=== PATIENT | male | born 1940 | race Caucasian/White ===

== ENCOUNTER → 2020-08-14 | Outpatient (CLI) | payer MEDICARE ==
--- NOTE | 2020-08-14 18:12 | RAD ---
CLINICAL HISTORY: Right testicular mass COMPARISON: None available. TECHNIQUE: Ultrasound images of the scrotum was performed with root-scale and color doppler. FINDINGS: The right testis measures 4.3 x 2.8 x 2.0 cm. The left testis measures 4.2 x 2.2 x 2.2 cm. There is no intratesticular abnormality. Testicular vascularity is symmetric and within normal limit s. Palpable concern corresponds to the right epididymis body which is without focal abnormality. There is a small right hydrocele. Complex partially septated left hydrocele. Mildly prominent left pa mpiniform plexus vessels without criteria for varicocele. IMPRESSION: 1. No testicular masses. Palpable concern corresponds to mildly prominent right epididymis body witho ut focal abnormality or hyperemia. 2. Small bilateral hydroceles, simple in the right and complex on the left. Electronically signed by: Prakash Byrnes MD (08/14/2020 6:09 PM) [id number]
== END ==
LOC: US 13:59
PROVIDERS: ATTEND Family Medicine
DX: N43.3 Hydrocele, unspecified (principal); N50.89 Other specified disorders of the male genital organs
CPT/HCPCS: 76870

== ENCOUNTER 2020-11-30 18:09 | Emergency (ER) | payer MEDICARE ==
[~2020-11-30] VITALS: Ht 165.1 cm; Wt 74.6 kg
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
[2020-11-30] MEDS ORDERED: HYDR-1179 PO (18:55)
[2020-11-30] MEDS ORDERED: MORPHINE SULFATE 10 MG/ML SYRINGE. SQ ONE ×2 (19:00→20:15)
--- NOTE | 2020-11-30 19:00 | RAD ---
EXAM: 3 views of the left ankle 2 views left tibia/fibula DATE: 11/30/2020 6:36 PM INDICATION: Reason: injury from fall, left ankle pain with swelling / Spl. Instructions: / History: COMPARISON: No Prior FINDINGS: There is avulsion of the tip of the medial malleolus with borderline widening of the medial malleolus . Calcaneal enthesophytes are seen. There is an oblique fracture of the proximal fibular shaft, essen tially nondisplaced. IMPRESSION: 1. Avulsion fracture of the tip of the medial malleolus with borderline widening of the medial malle olus. 2. Oblique fracture of the proximal fibular shaft, essentially nondisplaced. Electronically signed by: Trevor Winkler MD (11/30/2020 6:57 PM) ENRIQUE
[2020-11-30 19:34] VITALS: BP 76/43
[2020-11-30] MEDS ORDERED: DIPH,PERTUSS(ACELL),TET VAC/PF 0.5 ML SYRINGE. VAX IM ONE (20:00)
== END 2020-11-30 20:29 | disposition home or self-care (01) ==
LOC: ER 18:09
DX: S82.52XA Displaced fracture of medial malleolus of left tibia, initial encounter for closed fracture (principal); S82.432A Displaced oblique fracture of shaft of left fibula, initial encounter for closed fracture; E11.9 Type 2 diabetes mellitus without complications; W18.09XA Striking against other object with subsequent fall, initial encounter; Y93.89 Activity, other specified; Y92.89 Other specified places as the place of occurrence of the external cause; Y99.8 Other external cause status
CPT/HCPCS: 29515; 73590; 73610; 90471; 90715; 96372; 99283; J2270

== ENCOUNTER → 2021-02-11 | Outpatient (CLI) | payer MEDICARE ==
[~2021-02-11] MED LIST: HYDR-1179 PO
--- NOTE | 2021-02-12 16:36 | RAD ---
XR LT TIBIA + FIBULA, XR EXAM OF ANKLE_LEFT 3V History: Reason: INJURY - FOLLOW UP FRACTURE - PAIN / Spl. Instructions: / History: Technique: 3 views left ankle and 2 views left tibia and fibula Comparison: November 30, 2020 Findings: Healing left proximal fibular fracture with callus formation. Similar alignment compared to prior. No dislocation. Symmetric ankle mortise. Similar calcifications inferior to the medial malleolus. Vascular calcificat ions. Linear density through the lateral malleolus with cortical destruction laterally, may indicate nondisplaced fracture not well characterized previously. Calcifications adjacent to the posterior mal leolus, may indicate healing fracture. Plantar calcaneal spur. Impression: 1. Healing trimalleolar ankle fracture. 2. Healing proximal fibular fracture. Electronically signed by: Narciso Hunt DO (02/12/2021 4:33 PM) JUSTA
== END ==
LOC: RAD 18:03
PROVIDERS: ATTEND Physician Assistant
DX: S82.852D Displaced trimalleolar fracture of left lower leg, subsequent encounter for closed fracture with routine healing (principal); S82.492D Other fracture of shaft of left fibula, subsequent encounter for closed fracture with routine healing; M77.32 Calcaneal spur, left foot; X58.XXXD Exposure to other specified factors, subsequent encounter
CPT/HCPCS: 73590; 73610

== ENCOUNTER → 2021-05-23 | Day surgery (SDC) | payer MEDICARE ==
[~2021-05-23] MED LIST changes: +ALLO100T PO; +ATOR20TA58 PO; +IV RINGERS SOLUTION,LACTATED 1,000 ML IV SCH; +LISI1TAB39 PO; +MAGN64TA6 PO; +METF500T16 PO; +MIDAZOLAM HCL PF 2 MG/2 ML VIAL. IVP PRN; +ONDANSETRON PF 4 MG/2 ML VIAL. ONE; +PROPOFOL 10,000 MCG/ML (20ML) VIAL IV ONE; +zinc PO
--- NOTE | 2021-05-23 12:22 | EKG ---
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
[2021-05-23 14:10] VITALS: BP 103/76
--- NOTE | 2021-05-27 14:13 | PATHOLOGY ---
[facility] Accession Number: [id number] . 01 Material submitted: . ANTRUM - ANTRUM GASTRITIS . 01 Clinical history: . GI STOOL, ANEMIA . 02 Diagnosis: Gastric biopsies, antrum: - Chronic gastritis, mild. LBQ 05/27/2021 1157 Local . 02 Comment: Sections of the gastric biopsy reveal segments of gastric antral/body transition mucosa showing congestion and mild chronic inflammation. A properly controlled immunoperoxidase stain for Helicobacter is obtained. No Helicobacter organisms are identified. (JPM/db; 05/27/2021) . Special stain performed: Immunoperoxidase stain for Helicobacter on A1 . 02 Electronically signed: . Chris Stokes MD, Pathologist NPI- [id number] . 01 Gross description: . The specimen is received in formalin, labeled "Tam Londono, antrum gastritis". Received are two segments of pale sainz tissue measuring 0.3 and 0.8 cm in maximum dimensions. The specimen is submitted entirely in cassette A1. ([facility]; 05/26/2021) QA/QAC 05/26/2021 1525 Local . 02 Pathologist provided ICD-10: K29.50 . 02 CPT . 326255, Q31617 Specimen Comment: A courtesy copy of this report has been sent to [phone], [phone] Specimen Comment: [phone] Specimen Comment: Report sent to / DR MARINO Performed at: 01 [facility] [address] [id number] MD Juan Dempsey MD Phone: [phone] Performed at: 02 [facility] [address] [place], [place] [id number] MD Chris Stokes MD Phone: [phone]
== END | disposition home or self-care (01) ==
LOC: SURG 11:25
PROVIDERS: ATTEND Internal Medicine Gastroenterology
DX: R19.4 Change in bowel habit (principal); R19.5 Other fecal abnormalities; D64.9 Anemia, unspecified; R10.13 Epigastric pain; K29.50 Unspecified chronic gastritis without bleeding; K21.9 Gastro-esophageal reflux disease without esophagitis; K44.9 Diaphragmatic hernia without obstruction or gangrene; K57.30 Diverticulosis of large intestine without perforation or abscess without bleeding; K64.8 Other hemorrhoids; E11.9 Type 2 diabetes mellitus without complications; I10 Essential (primary) hypertension; E78.00 Pure hypercholesterolemia, unspecified; Z79.84 Long term (current) use of oral hypoglycemic drugs; Z79.899 Other long term (current) drug therapy
CPT/HCPCS: 43239; 45378; 82947; 93005; J7120; J2405; J2704